=== PATIENT | female | born 1990 | race Caucasian/White ===

== ENCOUNTER 2019-11-26 17:26 | Emergency (ER) | payer OTHER ==
[~2019-11-26] VITALS: Ht 154.9 cm; Wt 86.2 kg
[2019-11-26 17:32] VITALS: BP 123/82
[2019-11-26] MEDS ORDERED: DOXYCYCLINE 10100 MG PO (18:27)
[2019-11-26] MEDS ORDERED: CLEOCIN HCL150 MG PO (18:27)
[2019-11-26 19:38] LABS: AMP/METHAMP Negative (Negative); BARBITURATES Negative (Negative); BENZODIAZEPINES Negative (Negative); COCAINE Negative (Negative); METHADONE Negative (Negative); OPIATES Negative (Negative); PCP Negative (Negative)
== END 2019-11-26 19:29 | disposition home or self-care (01) ==
LOC: ER 17:26
PROVIDERS: Physician Assistant
DX: S61.253A Open bite of left middle finger without damage to nail, initial encounter (principal); S61.255A Open bite of left ring finger without damage to nail, initial encounter; S00.81XA Abrasion of other part of head, initial encounter; Z23 Encounter for immunization; W50.3XXA Accidental bite by another person, initial encounter; Y93.89 Activity, other specified; Y92.128 Other place in nursing home as the place of occurrence of the external cause; Y99.8 Other external cause status; Z88.0 Allergy status to penicillin